=== PATIENT | male | born 1995 | race Caucasian/White ===

== ENCOUNTER 2021-06-24 00:05 | Emergency (ER) | payer BC, OTHER ==
[2021-06-24] MEDS ORDERED: Zofran 4 MG/2 ML VIAL IV STA (01:07)
[2021-06-24] MEDS ORDERED: Sodium Chloride 0.9% 1000 ML 1,000 ML IV STA (01:07)
[2021-06-24] MEDS ORDERED: HYDROCODONE-ACETAMIN 2.5-108/5 ML SOLUTION PO STA (01:10)
[2021-06-24] MEDS ORDERED: DECADRON 10MG INJ. IV ONE (01:10)
--- NOTE | 2021-06-24 01:15 | ERPHSYRPT ---
- History of Present Illness Time Seen by Provider: 06/24/21 00:45 Source: patient Exam Limitations: no limitations Patient Subjective Stated Complaint: Patient states " I have been having a headache since Tuesday. I have been taking stuff for it and it isn't getting any better. I talked with a Tele-Doc and they stated I could have Meningitis. When I was talking to the tele-doc I couldn't even remember my ." Triage Nursing Assessment: Patient arrived to ED and ambulated back to room without difficulty. Patient A/O times 4. Patient able to follow instructions without difficulty. Patient Physician History: This is a 25-year-old white male who over the last 4 days has started initially with fatigue followed by headaches and body aches and mild cough. He is a little nauseated as well. He is here because he has not improved his symptoms with [id number] treatment. He denies fever. He denies chest pain. He denies shortness of breath at this time. He has had a couple of mild episodes of vomiting and diarrhea. Timing/Duration: day(s) Cough Quality/Degree: mild Possible Cause: illness exposure Modifying Factors: Improves With: coughing Associated Symptoms: cough, muscle aches, other (Weakness), No fever, No chest pain/soreness, No dizziness, No shortness of breath Allergies/Adverse Reactions: Sulfa (Sulfonamide Antibiotics) [Sulfa(Sulfonamide Antibiotics)] Allergy (Mild, Verified 06/24/21 00:18) Itching Hx Tetanus, Diphtheria Vaccination/Date Given: No Hx Influenza Vaccination/Date Given: No Hx Pneumococcal Vaccination/Date Given: No Immunizations Up to Date: Yes Travel Risk - International Travel Have you traveled outside of the country in past 3 weeks: No - Coronavirus Screening Are you exhibiting any of the following symptoms?: Yes Symptoms: Vomiting/Diarrhea, Headaches/Body Aches/Fatigue Close contact with a COVID-19 positive Pt in past 14-21 Days: No - Vaccine Status Have you recieved a Covid-19 vaccination: No - Review of Systems Constitutional: Weakness Eyes: No Symptoms Ears, Nose, & Throat: No Symptoms Respiratory: Cough Cardiac: No Symptoms Abdominal/Gastrointestinal: Nausea, Appetite Changes Genitourinary Symptoms: No Symptoms Musculoskeletal: Arthralgias, Myalgias Skin: No Symptoms Neurological: Headache Psychological: No Symptoms Endocrine: No Symptoms Hematologic/Lymphatic: No Symptoms Immunological/Allergic: No Symptoms All Other Systems: Reviewed and Negative - Past Medical History Pertinent Past Medical History: No Neurological History: No Pertinent History ENT History: No Pertinent History Cardiac History: No Pertinent History Respiratory History: No Pertinent History Endocrine Medical History: No Pertinent History Musculoskeletal History: No Pertinent History GI Medical History: No Pertinent History History: No Pertinent History Psycho-Social History: No Pertinent History Male Reproductive Disorders: No Pertinent History - Past Surgical History Past Surgical History: No Neuro Surgical History: No Pertinent History Cardiac: No Pertinent History Respiratory: No Pertinent History Gastrointestinal: No Pertinent History Genitourinary: No Pertinent History Musculoskeletal: No Pertinent History Male Surgical History: No Pertinent History - Social History Smoking Status: Never smoker Exposure to second hand smoke: No Drug Use: none Patient Lives Alone: No - Nursing Vital Signs Nursing Vital Signs: Initial Vital Signs Temperature 97.4 F 06/24/21 00:20 Pulse Rate 82 06/24/21 00:20 Respiratory Rate 18 06/24/21 00:20 Blood Pressure 114/89 06/24/21 00:20 O2 Sat by Pulse Oximetry 100 06/24/21 00:20 Pain Scale Pain Intensity 5 - Physical Exam General Appearance: no apparent distress, alert, anxiety, obese Eye Exam: PERRL/EOMI, eyes nml inspection Ears, Nose, Throat Exam: normal ENT inspection, moist mucous membranes Neck Exam: normal inspection, non-tender, supple, full range of motion Respiratory Exam: normal breath sounds, lungs clear, airway intact, No chest tenderness, No respiratory distress Cardiovascular Exam: regular rate/rhythm, normal heart sounds, normal peripheral pulses Gastrointestinal/Abdomen Exam: soft, normal bowel sounds, No tenderness Rectal Exam: not done Back Exam: normal inspection, normal range of motion, No CVA tenderness, No vertebral tenderness Extremity Exam: normal inspection, normal range of motion, pelvis stable Neurologic Exam: alert, oriented x 3, cooperative, 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, normal mood/affect, nml cerebellar function, nml station & gait, sensation nml Skin Exam: normal color, warm, dry Lymphatic Exam: No adenopathy SpO2 Interpretation: normal SpO2: 100 O2 Delivery: Room Air - Course Nursing assessment & vital signs reviewed: Yes Ordered Tests: Active Orders 24 hr Category Date Time Status IV Insertion STAT Care 06/24/21 01:07 Active Isolation, Initiate & Maintain STAT Care 06/24/21 01:08 Active Pulse Oximetry (ED) STAT Care 06/24/21 01:07 Active CHEST 1 VIEW (PORTABLE) Stat Exams 06/24/21 01:08 Taken BLOOD CULTURE Stat Lab 06/24/21 01:15 Received CBC W DIFF Stat Lab 06/24/21 01:15 Completed CMP Stat Lab 06/24/21 01:15 Completed D-DIMER QUANTITATIVE Stat Lab 06/24/21 01:15 Completed Ferritin Stat Lab 06/24/21 01:15 Received INFLUENZA A+B SANDI Stat Lab 06/24/21 01:28 Completed LDH-LACTATE DEHYDROGENASE Stat Lab 06/24/21 01:15 Completed Lactic Acid Stat Lab 06/24/21 01:28 Completed Manual Differential NC Stat Lab 06/24/21 01:15 Completed [place] Screen Stat Lab 06/24/21 01:28 Completed Medication Summary Discontinued Medications Generic Name Dose Route Start Last Admin Trade Name Freq PRN Reason Stop Dose Admin Hydrocodone Bitart/Acetaminophen 10 ml 06/24/21 01:10 06/24/21 01:26 Hydrocodone-Acetamin 2.5-108/5 Ml Solution PO 06/24/21 01:11 10 ml STAT STA Administration Hydrocodone Bitart/Acetaminophen Confirm 06/24/21 01:23 Hydrocodone-Acetamin 2.5-108/5 Ml Solution Administered 06/24/21 01:24 Dose 10 ml .ROUTE .STK-MED ONE Dexamethasone Sodium Phosphate 10 mg 06/24/21 01:10 06/24/21 01:27 Decadron 10mg Inj. IV 06/24/21 01:11 10 mg STAT ONE Administration Dexamethasone Sodium Phosphate Confirm 06/24/21 01:22 Decadron 10mg Inj. Administered 06/24/21 01:23 Dose 10 mg .ROUTE .STK-MED ONE Sodium Chloride 1,000 mls @ 999 mls/hr 06/24/21 01:07 06/24/21 01:27 Sodium Chloride 0.9% 1000 Ml IV 06/24/21 02:07 999 mls/hr .Q1H1M STA Administration Sodium Chloride Confirm 06/24/21 01:23 Sodium Chloride 0.9% 1000 Ml Administered 06/24/21 01:24 Dose 1,000 mls @ ud .ROUTE .STK-MED ONE Ondansetron HCl 4 mg 06/24/21 01:07 06/24/21 01:27 Zofran 4 Mg/2 Ml Vial IV 06/24/21 01:08 4 mg STAT STA Administration Ondansetron HCl Confirm 06/24/21 01:22 Zofran 4 Mg/2 Ml Vial Administered 06/24/21 01:23 Dose 4 mg .ROUTE .STK-MED ONE Lab/Rad Data: Laboratory Result Diagrams 06/24/21 01:15 06/24/21 01:15 Laboratory Results 06/24/21 06/24/21 06/24/21 Range/Units 01:28 01:28 01:28 WBC (4.0-10.5) K/mm3 RBC (4.1-5.6) M/mm3 Hgb (12.5-18.0) gm/dl Hct (42-50) % MCV (78-100) fl MCH (26-32) pg MCHC (32-36) g/dl RDW (11.5-14.0) % Plt Count (150-450) K/mm3 MPV (7.5-11.0) fl D-Dimer (215-500) ng/mL Sodium (137-145) mmol/L Potassium (3.5-5.1) mmol/L Chloride (98-107) mmol/L Carbon Dioxide (22-30) mmol/L Anion Gap (5-15) MEQ/L BUN (9-20) mg/dL Creatinine (0.66-1.25) mg/dL Estimated GFR ML/MIN Glucose (74-106) mg/dL Lactic Acid (0.4-2.0) Calcium (8.4-10.2) mg/dL Total Bilirubin (0.2-1.3) mg/dL AST (17-59) U/L ALT (0-50) U/L Alkaline Phosphatase (38-126) U/L Lactate Dehydrogenase (120-246) U/L Serum Total Protein (6.3-8.2) g/dL Albumin (3.5-5.0) g/dL Monoscreen NEGATIVE (Negative) Influenza Type A Ag NEGATIVE (NEGATIVE) Influenza Type B Ag NEGATIVE (NEGATIVE) Group A Strep Antibody NOT DETECTED (NEGATIVE) 06/24/21 06/24/21 06/24/21 Range/Units 01:28 01:15 01:15 WBC (4.0-10.5) K/mm3 RBC (4.1-5.6) M/mm3 Hgb (12.5-18.0) gm/dl Hct (42-50) % MCV (78-100) fl MCH (26-32) pg MCHC (32-36) g/dl RDW (11.5-14.0) % Plt Count (150-450) K/mm3 MPV (7.5-11.0) fl D-Dimer < 215 L (215-500) ng/mL Sodium 137 (137-145) mmol/L Potassium 4.1 (3.5-5.1) mmol/L Chloride 105 (98-107) mmol/L Carbon Dioxide 23 (22-30) mmol/L Anion Gap 13.2 (5-15) MEQ/L BUN 11 (9-20) mg/dL Creatinine 0.80 (0.66-1.25) mg/dL Estimated GFR > 60.0 ML/MIN Glucose 84 (74-106) mg/dL Lactic Acid 0.9 (0.4-2.0) Calcium 9.1 (8.4-10.2) mg/dL Total Bilirubin 0.30 (0.2-1.3) mg/dL AST 36 (17-59) U/L ALT 42 (0-50) U/L Alkaline Phosphatase 61 (38-126) U/L Lactate Dehydrogenase 169 (120-246) U/L Serum Total Protein 7.4 (6.3-8.2) g/dL Albumin 4.5 (3.5-5.0) g/dL Monoscreen (Negative) Influenza Type A Ag (NEGATIVE) Influenza Type B Ag (NEGATIVE) Group A Strep Antibody (NEGATIVE) 06/24/21 Range/Units 01:15 WBC 3.3 L (4.0-10.5) K/mm3 RBC 5.49 (4.1-5.6) M/mm3 Hgb 14.7 (12.5-18.0) gm/dl Hct 44.0 (42-50) % MCV 80.1 (78-100) fl MCH 26.8 (26-32) pg MCHC 33.4 (32-36) g/dl RDW 13.6 (11.5-14.0) % Plt Count 134 L (150-450) K/mm3 MPV 10.2 (7.5-11.0) fl D-Dimer (215-500) ng/mL Sodium (137-145) mmol/L Potassium (3.5-5.1) mmol/L Chloride (98-107) mmol/L Carbon Dioxide (22-30) mmol/L Anion Gap (5-15) MEQ/L BUN (9-20) mg/dL Creatinine (0.66-1.25) mg/dL Estimated GFR ML/MIN Glucose (74-106) mg/dL Lactic Acid (0.4-2.0) Calcium (8.4-10.2) mg/dL Total Bilirubin (0.2-1.3) mg/dL AST (17-59) U/L ALT (0-50) U/L Alkaline Phosphatase (38-126) U/L Lactate Dehydrogenase (120-246) U/L Serum Total Protein (6.3-8.2) g/dL Albumin (3.5-5.0) g/dL Monoscreen (Negative) Influenza Type A Ag (NEGATIVE) Influenza Type B Ag (NEGATIVE) Group A Strep Antibody (NEGATIVE) - Progress Progress: improved Air Movement: good Progress Note: 06/24/21 02:16 Chest x-ray shows no acute cardiopulmonary process Blood Culture(s) Obtained: Yes - Departure Departure Disposition: Home Clinical Impression: Viral illness Condition: Stable Critical Care Time: No Referrals: IRENA LING, [NON-STAFF Y W/O PRIVILEGES] - Additional Instructions: Drink plenty of fluids. Take your medication as prescribed. Follow-up with your primary care physician for further management. Quarantine yourself until you have the results of your COVID-19 test. Forms: Work/School Release Form Prescriptions: Hydrocodone/Acetaminophen [Hydrocodone-Acetamn 7.5-325/15] 10 ml PO Q8H PRN PRN #120 ml MDD 30 mL PRN Reason: Cough
[2021-06-24] MEDS ORDERED: DECADRON 10MG INJ. ONE (01:22)
[2021-06-24] MEDS ORDERED: Zofran 4 MG/2 ML VIAL ONE (01:22)
[2021-06-24] MEDS ORDERED: Sodium Chloride 0.9% 1000 ML 1,000 ML ONE (01:23)
[2021-06-24] MEDS ORDERED: HYDROCODONE-ACETAMIN 2.5-108/5 ML SOLUTION ONE (01:23)
[2021-06-24 01:33] LABS: Hemoglobin 14.7 gm/dl (12.5-18.0); Mean Cell Volume 80.1 fl (78-100); Mean Corpuscular Hemoglobin 26.8 pg (26-32); Mean Corpuscular Hgb Concent. 33.4 g/dl (32-36); Mean Platelet Volume 10.2 fl (7.5-11.0); Platelet Count 134 K/mm3 (150-450); Red Blood Count 5.49 M/mm3 (4.1-5.6); Red Cell Distribution Width 13.6 % (11.5-14.0); White Blood Count 3.3 K/mm3 (4.0-10.5)
[2021-06-24 01:52] LABS: ALBUMIN 4.5 g/dL (3.5-5.0); ALKALINE PHOSPHATASE 61 U/L (38-126); ANION GAP 13.2 MEQ/L (5-15); BLOOD UREA NITROGEN 11 mg/dL (9-20); CHLORIDE 105 mmol/L (98-107); Calcium 9.1 mg/dL (8.4-10.2); Carbon Dioxide 23 mmol/L (22-30); EST GLOMERULAR FILTRATION RATE > 60.0 ML/MIN; Glucose 84 mg/dL (74-106); LDH-LACTATE DEHYDROGENASE 169 U/L (120-246); Potassium 4.1 mmol/L (3.5-5.1); SGOT/AST 36 U/L (17-59); SGPT/ALT 42 U/L (0-50); SODIUM 137 mmol/L (137-145); Total Protein 7.4 g/dL (6.3-8.2)
[2021-06-24 02:09] LABS: INFLUENZA A NEGATIVE (NEGATIVE); INFLUENZA B NEGATIVE (NEGATIVE)
[2021-06-24 02:45] VITALS: BP 114/84; PULSE 80; O2SAT 98
[2021-06-24 02:47] LABS: BAND 8 % (0.0-2.0); Eosinophil 6 % (0.00-3.0); Lymphocytes 30 % (24-44); Monocyte 6 % (0.0-12.0); Neutrophils 50 % (36.-66.); Platelet Estimate NORMAL (NORMAL); Total Cells Counted 100
--- NOTE | 2021-06-24 09:09 | XRAY ---
Indication: Cough. Comparison: January 29, 2010. Portable chest demonstrates normal heart, lungs, and bony thorax.
== END 2021-06-24 02:45 | disposition home or self-care (01) ==
LOC: ED 00:05
DX: B34.9 Viral infection, unspecified (principal)
CPT/HCPCS: 36000; 36415; 71045; 80053; 82728; 83605; 83615; 85025; 85379; 86308; 87040; 87400; 87651; 94760; 96360; 96374; 96375; 99284; U0003; J1100; J2405; A9270-GY

== ENCOUNTER 2025-05-08 16:41 | Emergency (ER) | payer MEDICAID ==
--- NOTE | 2025-05-08 16:46 | ERPHSYRPT ---
- History of Present Illness Time Seen by Provider: 05/08/25 16:46 Source: patient Exam Limitations: no limitations Physician History: This is a 29-year-old white male patient who arrives to the emergency department by private vehicle with the complaint of relatively sudden onset of right flank pain that occurred this morning and is worsened throughout the day. Patient has a history of ureterolithiasis. This feels fairly similar in terms of location and intensity. It is somewhat waxing and waning. It never completely goes away. The pain is in the right flank and it radiates into his right testicle. He has had nausea and vomiting symptoms but no diarrhea. He denies chest pain and he denies shortness of breath. Timing/Duration: today Quality: aching, sharpness Onset Location: right flank Pain Radiation: other (Radiates into right testicle) Severity of Pain-Max: moderate Severity of Pain-Current: moderate Modifying Factors: Improves With: vomiting Associated Symptoms: nausea, vomiting Prior abdominal problems: none Sexual intercourse history: non-contributory Allergies/Adverse Reactions: Sulfa (Sulfonamide Antibiotics) [Sulfa(Sulfonamide Antibiotics)] Allergy (Mild, Verified 06/24/21 00:18) Itching Home Medications: No Reportable Medications [No Reported Medications] 05/08/25 [History] Hx Tetanus, Diphtheria Vaccination/Date Given: No Hx Influenza Vaccination/Date Given: No Hx Pneumococcal Vaccination/Date Given: No Travel Risk - International Travel Have you traveled outside of the country in past 3 weeks: No - Emerging Infectious Disease Are you exhibiting symptoms associated with any current EIDs: No - Past Medical History Pertinent Past Medical History: No Neurological History: No Pertinent History ENT History: No Pertinent History Cardiac History: No Pertinent History Respiratory History: No Pertinent History Endocrine Medical History: No Pertinent History Musculoskeletal History: No Pertinent History GI Medical History: No Pertinent History History: No Pertinent History Psycho-Social History: No Pertinent History Male Reproductive Disorders: No Pertinent History - Past Surgical History Past Surgical History: No Neuro Surgical History: No Pertinent History Cardiac: No Pertinent History Respiratory: No Pertinent History Gastrointestinal: No Pertinent History Genitourinary: No Pertinent History Musculoskeletal: No Pertinent History Male Surgical History: No Pertinent History - Social History Smoking Status: Never smoker Exposure to second hand smoke: No Drug Use: none Patient Lives Alone: No - Review of Systems Constitutional: No Symptoms Eyes: No Symptoms Ears, Nose, & Throat: No Symptoms Respiratory: No Symptoms Abdominal/Gastrointestinal: Nausea, Vomiting, Appetite Changes Genitourinary Symptoms: Flank Pain (Right flank pain) Musculoskeletal: No Symptoms Skin: No Symptoms Neurological: No Symptoms Psychological: No Symptoms Endocrine: No Symptoms Hematologic/Lymphatic: No Symptoms Immunological/Allergic: No Symptoms All Other Systems: Reviewed and Negative - Nursing Vital Signs Nursing Vital Signs: Initial Vital Signs Temperature 97.6 F 05/08/25 16:47 Pulse Rate 74 05/08/25 16:47 Respiratory Rate 20 05/08/25 16:47 Blood Pressure 157/93 05/08/25 16:47 O2 Sat by Pulse Oximetry 96 05/08/25 16:47 Pain Scale Pain Intensity 4 - Physical Exam General Appearance: no apparent distress, alert, anxiety Eye Exam: PERRL/EOMI, eyes nml inspection Ears, Nose, Throat Exam: normal ENT inspection, moist mucous membranes Neck Exam: normal inspection, non-tender, supple, full range of motion Respiratory Exam: normal breath sounds, lungs clear, airway intact, No chest tenderness, No respiratory distress Cardiovascular Exam: regular rate/rhythm, normal heart sounds, No normal peripheral pulses Gastrointestinal/Abdomen Exam: soft, normal bowel sounds, No tenderness Rectal Exam: deferred Back Exam: normal inspection, normal range of motion, CVA tenderness (Right side), vertebral tenderness Extremity Exam: normal inspection, normal range of motion, pelvis stable Neurologic Exam: alert, oriented x 3, cooperative, 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 as tested, nml cerebellar function, nml station & gait, sensation nml Skin Exam: normal color, warm, dry Lymphatic Exam: No adenopathy SpO2 Interpretation: normal O2 Delivery: Room Air - Course Nursing assessment & vital signs reviewed: Yes Ordered Tests: Active Orders 24 hr Category Date Time Status IV Insertion STAT Care 05/08/25 17:03 Active ABDOMEN AND PELVIS W/0 CONTRAS [CT] Stat Exams 05/08/25 17:03 Taken AMYLASE Stat Lab 05/08/25 17:17 Completed CBC W DIFF Stat Lab 05/08/25 17:17 Completed CMP Stat Lab 05/08/25 17:17 Completed CULTURE,URINE Stat Lab 05/08/25 17:17 Received LIPASE Stat Lab 05/08/25 17:17 Completed UA W/RFX UR CULTURE Stat Lab 05/08/25 17:17 Completed Medication Summary Discontinued Medications Generic Name Dose Route Start Last Admin Trade Name Pia PRN Reason Stop Dose Admin Hydromorphone HCl 1 mg 05/08/25 17:03 05/08/25 17:23 Hydromorphone 1 Mg/1ml Inj IV 05/08/25 17:04 1 mg STAT ONE Administration Hydromorphone HCl Confirm 05/08/25 17:20 Hydromorphone 1 Mg/1ml Inj Administered 05/08/25 17:21 Dose 1 mg .ROUTE .STK-MED ONE Sodium Chloride 1,000 mls @ 999 mls/hr 05/08/25 17:03 05/08/25 18:38 Sodium Chloride 0.9% 1000 Ml IV 05/08/25 18:03 Infused .Q1H1M STA Infusion Sodium Chloride Confirm 05/08/25 17:20 Sodium Chloride 0.9% 1000 Ml Administered 05/08/25 17:21 Dose 1,000 mls @ ud .ROUTE .STK-MED ONE Ceftriaxone Sodium 1 gm in 100 mls @ 200 mls/hr 05/08/25 18:43 05/08/25 19:07 Rocephin 1 Gm / 100 Ml Nacl IV 05/08/25 19:12 200 ml/hr STAT ONE 200 mls/hr Administration Ceftriaxone Sodium Confirm 05/08/25 19:06 Rocephin 1 Gm / 100 Ml Nacl Administered 05/08/25 19:07 Dose 1 gm in 100 mls @ ud IV .STK-MED ONE Ketorolac Tromethamine 30 mg 05/08/25 17:03 05/08/25 17:22 Ketorolac Tromethamine 30 Mg/Ml Inj IV 05/08/25 17:04 30 mg STAT ONE Administration Ketorolac Tromethamine Confirm 05/08/25 17:20 Ketorolac Tromethamine 30 Mg/Ml Inj Administered 05/08/25 17:21 Dose 30 mg .ROUTE .STK-MED ONE Ondansetron HCl 4 mg 05/08/25 17:03 05/08/25 17:23 Ondansetron Hcl 4 Mg/2 Ml Vial IV 05/08/25 17:04 4 mg STAT ONE Administration Ondansetron HCl Confirm 05/08/25 17:20 Ondansetron Hcl 4 Mg/2 Ml Vial Administered 07/23/25 17:21 Dose 4 mg .ROUTE .[facility]-MED ONE Lab/Rad Data: Laboratory Result Diagrams 05/08/25 17:17 05/08/25 17:17 Laboratory Results 05/08/25 05/08/25 05/08/25 Range/Units 17:17 17:17 17:17 WBC 9.9 H (4.23-9.07) x10^3/uL RBC 5.61 (4.63-6.08) x10^6/uL Hgb 15.0 (13.7-17.5) g/dL Hct 43.9 (40.1-51.0) % MCV 78.3 L (79.0-92.2) fL MCH 26.7 (25.7-32.2) pg MCHC 34.2 (32.3-36.5) g/dL RDW 13.7 (11.6-14.4) % Plt Count 217 (163-337) x10^3/uL MPV 10.1 (9.4-12.4) fL Gran % 72.2 H (34.0-67.9) % Immature Gran % (Auto) 1.1 H (0.001-0.429) % Nucleat RBC Rel Count 0.0 (0.00-0.2) % Eos # (Auto) 0.08 (0.04-0.54) x10^3/uL Immature Gran # (Auto) 0.11 H (0.001-0.031) x10^3u/L Absolute Lymphs (auto) 1.81 (1.32-3.57) x10^3/uL Absolute Monos (auto) 0.68 (0.30-0.82) x10^3/uL Absolute Nucleated RBC 0.00 (0.00-0.012) x10^3u/L Lymphocytes % 18.3 L (21.8-53.1) % Monocytes % 6.9 (5.3-12.2) % Eosinophils % 0.8 (0.8-7.0) % Basophils % 0.7 (0.2-1.2) % Absolute Granulocytes 7.14 H (1.78-5.38) x10^3/uL Basophils # 0.07 (0.01-0.08) x10^3/uL Sodium 139 (135-145) mmol/L Potassium 4.5 (3.5-5.1) mmol/L Chloride 108 H (98-107) mmol/L Carbon Dioxide 22 (22-30) mmol/L Anion Gap 13.2 (5-15) MEQ/L BUN 13 (9-20) mg/dL Creatinine 1.23 (0.66-1.25) mg/dL Estimated GFR 80.5 ML/MIN Glucose 117 H (74-106) mg/dL Calcium 9.5 (8.4-10.2) mg/dL Total Bilirubin 0.70 (0.2-1.3) mg/dL AST 47 (17-59) U/L ALT 65 H (0-50) U/L Alkaline Phosphatase 74 (38-126) U/L Serum Total Protein 7.7 (6.3-8.2) g/dL Albumin 4.6 (3.5-5.0) g/dL Amylase 73 (30-110) U/L Lipase 192 (23-300) U/L Urine Color Yellow (Yellow) Urine Appearance Clear (Clear) Urine pH 6.0 (4.6-8.0) Ur Specific [place] 1.025 (1.005-1.030) Urine Protein 30 (Negative) Urine Glucose (UA) Negative (Negative) mg/dL Urine Ketones Trace A (Negative) Urine Blood Large A (Negative) Urine Nitrite Negative (Negative) Urine Bilirubin Negative (Negative) Urine Urobilinogen 0.2 (0.2) mg/dL Ur Leukocyte Esterase Trace A (Negative) U Hyaline Cast (Auto) NONE SEEN (0-2) /LPF Urine Microscopic RBC >100 A (0-5) /HPF Urine Microscopic WBC 3-5 (0-5) /HPF Ur Epithelial Cells None Seen (None Seen) /HPF Urine Bacteria None Seen (None Seen) /HPF Urine Culture Reflexed YES (NO) - Progress Progress: improved, pain not gone completely, re-examined Progress Note: 05/08/25 17:07 My medical decision making and the assignment of moderate complexity of this patient's medical issue today is based on review of the patient's past medical history, review the patient's medication list, reviewed patient drug allergy list, history present illness and physical findings on examination. The workup in this patient includes placement of intravenous line fusion normal saline solution, infusion of Zofran and Dilaudid as well as Toradol intravenously, CBC, CMP, amylase, lipase, urinalysis and CT scan of the abdomen pelvis without contrast. Differential diagnosis includes but is not limited to muscle skeletal pain, ureterolithiasis, pancreatitis, cholecystitis/cholelithiasis, acute appendicitis, bowel obstruction 05/08/25 18:46 I interpreted the patient's laboratory data results. Based on laboratory data results, there is evidence of urinary tract infection and hematuria. CT scan of the abdomen pelvis without contrast was interpreted by the radiologist and I reviewed the impression. The impression states proximal right ureteral calculus measuring 7 mm x 9 mm x 16 mm at the L3 level with mild right hydronephrosis and mild right renal edema. 05/08/25 19:[address] Erickson at [facility]. I reviewed the patient history, presenting complaint, workup results with him. He accepts the patient in transfer. He also stated the patient can eat and drink but n.p.o. after midnight Counseled pt/family regarding: lab results, diagnosis, rad results Medical Desision Making - Independent Historian Additional History obtained from: Spouse - Diagnostic Testing Radiological Interpretation: Reviewed by me, Teleradiologist Report - Risk of complications The pt has a high risk of morbidity or mortality based on: Decision regarding hospitilization or escalation of hosp level of care - Departure Departure Disposition: Transfer Clinical Impression: Right ureteral calculus, Obstructive uropathy Condition: Stable Critical Care Time: No Referrals: DOCTOR,NO FAMILY [Primary Care Provider, UNKNOWN] - Follow up/PCP as directed
[2025-05-08 16:54] VITALS: TEMP 97.6
[2025-05-08 17:18] LABS: BASOPHIL % 0.7 % (0.2-1.2); Basophil (Absolute #) 0.07 x10^3/uL (0.01-0.08); Eosinophil (Absolute #) 0.08 x10^3/uL (0.04-0.54); Hematocrit 43.9 % (40.1-51.0); Hemoglobin 15.0 g/dL (13.7-17.5); IMMATURE GRAN # 0.11 x10^3u/L (0.001-0.031); IMMATURE GRAN % 1.1 % (0.001-0.429); Lymphocyte (Absolute #) 1.81 x10^3/uL (1.32-3.57); Mean Corpuscular Hemoglobin 26.7 pg (25.7-32.2); Mean Corpuscular Hgb Concent. 34.2 g/dL (32.3-36.5); Monocyte (Absolute #) 0.68 x10^3/uL (0.30-0.82); NUCLEATED RBC # 0.00 x10^3u/L (0.00-0.012); NUCLEATED RBC % 0.0 % (0.00-0.2); Platelet Count 217 x10^3/uL (163-337); Red Blood Count 5.61 x10^6/uL (4.63-6.08); White Blood Count 9.9 x10^3/uL (4.23-9.07)
[2025-05-08] MEDS ORDERED: TORAdol 30 mg Injection ONE (17:20)
[2025-05-08] MEDS ORDERED: Zofran 4 MG/2 ML VIAL ONE (17:20)
[2025-05-08] MEDS ORDERED: Hydromorphone 1 mg/ml Injection ONE ×2 (17:20→20:26)
[2025-05-08] MEDS: TORAdol 30 mg Injection IV ONE (17:22)
[2025-05-08] MEDS: Hydromorphone 1 mg/ml Injection IV ONE ×2 (17:23→20:27)
[2025-05-08] MEDS: Zofran 4 MG/2 ML VIAL IV ONE (17:23)
[2025-05-08 17:25] LABS: Glucose, Urine Negative (Negative); Protein,Urine Dip 30 (Negative); RBC >100 /HPF (0-5)
[2025-05-08 17:59] LABS: Calcium 9.5 mg/dL (8.4-10.2); Carbon Dioxide 22.0 mmol/L (22-30); Creatinine 1 1.23 mg/dL (0.66-1.25); EST GLOMERULAR FILTRATION RATE 80.5 ML/MIN; Glucose 117.0 mg/dL (74-106); Potassium 4.5 mmol/L (3.5-5.1); SGOT/AST 47.0 U/L (17-59); SGPT/ALT 65.0 U/L (0-50); Total Protein 7.7 g/dL (6.3-8.2)
[2025-05-08] MEDS ORDERED: ROCEPHIN 1 GM / 100 ML NaCl 1 GM/100 ML IVPB IV ONE (19:06)
[2025-05-08] MEDS: ROCEPHIN 1 GM / 100 ML NaCl 1 GM/100 ML IVPB IV ONE (19:07)
[2025-05-08] MEDS ORDERED: BENADRYL 50 MG/ML ONE (22:07)
[2025-05-08] MEDS ORDERED: Compazine 10 MG/2 ML ONE (22:07)
[2025-05-08] MEDS: Compazine 10 MG/2 ML IV ONE (22:11)
[2025-05-08] MEDS: BENADRYL 50 MG/ML IV ONE (22:11)
[2025-05-09] MEDS ORDERED: TORAdol 30 mg Injection ONE (02:06)
[2025-05-09] MEDS ORDERED: Zofran 4 MG/2 ML VIAL ONE (02:06)
[2025-05-09] MEDS: TORAdol 30 mg Injection IV ONE (02:07)
[2025-05-09] MEDS: Zofran 4 MG/2 ML VIAL IV ONE (02:08)
[2025-05-09 02:09] VITALS: BP 143/83; PULSE 100; RESP 23; O2SAT 96
--- NOTE | 2025-05-09 08:43 | XRAY ---
Indication: Right flank pain. Multiple contiguous axial images obtained through the abdomen and pelvis without contrast using renal stone protocol. Comparison: None Lung bases demonstrates tiny posterior right lower lobe calcified granuloma. No infiltrate or effusion. Heart not enlarged with incidental 1 cm right infrahilar calcified node. Proximal right ureter demonstrates 7 x 9 x 16 mm calculus, proximally L3 level. There is mild proximal hydroureter, mild hydronephrosis, and mild renal edema consistent with partial obstructive uropathy. Noncontrasted stomach and bowel loops appear nonobstructed with normal appendix. Incidental 19.5 cm fatty hepatomegaly, 17 cm splenomegaly, and tiny splenic calcified granulomas. No free fluid/air. Remaining pancreas, adrenal glands, left kidney, left ureter, bladder, and aorta are unremarkable for noncontrast exam. Osseous structures intact. Impression: 1. Proximal right ureteral calculus producing obstructive uropathy as detailed. 2. Chronic findings including fatty hepatomegaly, splenomegaly, and old granulomatous disease.
== END 2025-05-09 02:23 | disposition short-term general hospital (02) ==
LOC: ED 16:41
DX: N13.2 Hydronephrosis with renal and ureteral calculous obstruction (principal); R10.9 Unspecified abdominal pain; R11.2 Nausea with vomiting, unspecified